=== PATIENT | male | born 1950 | race Caucasian/White ===

== ENCOUNTER 2018-11-11 10:01 | Emergency (ER) | payer BC, OTHER ==
--- NOTE | 2018-11-11 13:10 | EDPHY ---
H & P Stated Complaint: Double vision Time Seen by Provider: 11/11/18 12:53 HPI/ROS: CHIEF COMPLAINT: Double vision HISTORY OF PRESENT ILLNESS: Patient is a 68-year-old man the who comes to the emergency department this daughter complaining double vision over the last 2 weeks. It is particularly when he looks to the right. Today his daughter noticed that his right eye was off center and looking to the right. 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 He has not had any trauma. He has not had a fever. He does endorse a very mild headache behind his left eye. No sinus congestion. No weakness in his arms or legs. No trouble with his speech. No weakness in his face. Patient usually goes to the [place]. He states that he has not had to go to the hospital for 30 years. He has been told previously that he is diabetic but stop taking his oral medications. The he states that he is not heavy drinker. Severity: Moderate Modifying factors: None REVIEW OF SYSTEMS: Constitutional: denies: chills, fever, recent illness, recent injury EENTM: See HPI denies: blurred vision, nose congestion Respiratory: denies: cough, shortness of breath Cardiac: denies: chest pain, irregular heart rate, lightheadedness, palpitations Gastrointestinal/Abdominal: denies: abdominal pain, diarrhea, nausea, vomiting, blood streaked stools Genitourinary: denies: dysuria, frequency, hematuria, pain Musculoskeletal: denies: joint pain, muscle pain Skin: denies: lesions, rash, jaundice, bruising Neurological: denies: headache, numbness, paresthesia, tingling, dizziness, weakness Hematologic/Lymphatic: denies: blood clots, easy bleeding, easy bruising Immunologic/allergic: denies: HIV/AIDS, transplant 10 systems reviewed and negative except as noted EXAM: GENERAL: Well-appearing, well-nourished and in no acute distress. HEAD: Atraumatic, normocephalic. EYES: Right eye tends to drift temporally when looking straight ahead. Does not have double vision in each eye individually but only with both eyes together. Tends to close right eye when talking. Able to move in all directions but seems to deviate to far laterally. Pupils equal round and reactive to light, extraocular movements intact, sclera anicteric, conjunctiva are normal. No ptosis appreciated ENT: TMs normal, nares patent, oropharynx clear without exudates. Moist mucous membranes. Vision 20/25 in each eye and in both together NECK: Normal range of motion, supple without lymphadenopathy or JVD. LUNGS: Breath sounds clear to auscultation bilaterally and equal. No wheezes rales or rhonchi. HEART: Regular rate and rhythm without murmurs, rubs or gallops. ABDOMEN: Soft, nontender, normoactive bowel sounds. No guarding, no rebound. No masses appreciated. BACK: No CVA tenderness, no spinal tenderness, step-offs or deformities EXTREMITIES: Normal range of motion, no pitting or edema. No clubbing or cyanosis. NEUROLOGICAL: Cranial nerves II through XII grossly intact. Normal speech, normal gait. 5/5 strength, normal movement in all extremities, normal sensation , normal reflexes PSYCH: Normal mood, normal affect. SKIN: Warm, dry, normal turgor, no visible rashes or lesions. Source: Patient - Personal History Current Tetanus/Diphtheria Vaccine: Yes - Medical/Surgical History Hx Asthma: No Hx Chronic Respiratory Disease: Yes Hx Diabetes: Yes Hx Cardiac Disease: Yes Hx Renal Disease: No Hx Cirrhosis: No Hx Alcoholism: No Other PMH: Lombardo's Palsy. Pre-diabetic - Family History Significant Family History: No pertinent family hx - Social History Smoking Status: Heavy smoker Alcohol Use: None Constitutional: Initial Vital Signs Temperature (C) 36.9 C 11/11/18 10:16 Heart Rate 90 11/11/18 10:16 Respiratory Rate 16 11/11/18 10:16 Blood Pressure 175/101 H 11/11/18 10:16 O2 Sat (%) 90 L 11/11/18 10:16 O2 Delivery Mode Room Air Allergies/Adverse Reactions: No Known Allergies Allergy (Unverified 11/11/18 10:22) Home Medications: Medication Instructions Recorded NK [No Known Home Meds] 11/11/18 Medical Decision Making - Diagnostics Imaging Results: Imaging Impressions Head CT 11/11/18 13:07 Impression: No evidence for acute intracranial abnormality. Mild left chronic sinus related change. Results called and discussed with Dr. Porfirio Elizabeth on 11/11/2018, 14:49. Head CTA 11/11/18 13:07 Impression: 1. Mild atherosclerotic change in both carotid bulbs, without flow significant stenosis. No evidence for flow significant stenosis or dissection in either carotid artery or vertebral artery. 2. Multilevel degenerative disk and degenerative joint disease cervical spine. 3. Subdermal cyst seen in the posteroinferior neck in the midline. CT Angiogram of the Brain Clinical Indications: Double vision. 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 Technique: CT angiogram of the brain was performed with the uneventful intravenous administration of 85 mL Omnipaque-350 contrast. Multiplanar reconstructions including 3D reconstructions performed and evaluated on [employer] workstation in order to better evaluate the [place] vessels. Images were manipulated by the radiologist at the computer workstation. Dose reduction techniques were utilized. Findings: Major vessels of the [place] are adequately displayed, demonstrating no evidence of aneurysm, vascular malformation, flow-limiting stenosis, or occlusion. Bilateral cavernous internal carotid arteries and vertebrobasilar system demonstrates no evidence of flow-limiting stenosis, aneurysm, occlusion, or dissection. Superior sagittal sinus, transverse sinuses , and major veins demonstrate no evidence of intraluminal thrombi. Mild atherosclerotic calcifications are seen in the intracranial portions of both internal carotid arteries, with no flow significant stenosis. Impression: No flow significant stenosis is visualized. Mild atherosclerotic change is seen in the intracranial portions of both internal carotid arteries. No evidence for aneurysm or dural venous malformation. Results called and discussed with Porfirio Elizabeth M.D., at October 14, 2018 at 1445 hours. Measurement of carotid stenosis is based on the residual internal carotid diameter with [place] Symptomatic Carotid Endarterectomy Trial (NASCET) based stenosis levels. Neck CTA 11/11/18 13:07 Impression: 1. Mild atherosclerotic change in both carotid bulbs, without flow significant stenosis. No evidence for flow significant stenosis or dissection in either carotid artery or vertebral artery. 2. Multilevel degenerative disk and degenerative joint disease cervical spine. 3. Subdermal cyst seen in the posteroinferior neck in the midline. CT Angiogram of the Brain Clinical Indications: Double vision. 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 Technique: CT angiogram of the brain was performed with the uneventful intravenous administration of 85 mL Omnipaque-350 contrast. Multiplanar reconstructions including 3D reconstructions performed and evaluated on [employer] workstation in order to better evaluate the [place] vessels. Images were manipulated by the radiologist at the computer workstation. Dose reduction techniques were utilized. Findings: Major vessels of the [place] are adequately displayed, demonstrating no evidence of aneurysm, vascular malformation, flow-limiting stenosis, or occlusion. Bilateral cavernous internal carotid arteries and vertebrobasilar system demonstrates no evidence of flow-limiting stenosis, aneurysm, occlusion, or dissection. Superior sagittal sinus, transverse sinuses , and major veins demonstrate no evidence of intraluminal thrombi. Mild atherosclerotic calcifications are seen in the intracranial portions of both internal carotid arteries, with no flow significant stenosis. Impression: No flow significant stenosis is visualized. Mild atherosclerotic change is seen in the intracranial portions of both internal carotid arteries. No evidence for aneurysm or dural venous malformation. Results called and discussed with Porfirio Elizabeth M.D., at October 14, 2018 at 1445 hours. Measurement of carotid stenosis is based on the residual internal carotid diameter with [place] Symptomatic Carotid Endarterectomy Trial (NASCET) based stenosis levels. Brain MRI 11/11/18 15:44 Impression: 1. A few nonspecific hyperintense T2/FLAIR signal abnormalities in the white matter of bilateral cerebral hemispheres. Differential diagnosis includes minimal microvascular ischemic gliosis, migraine-related sequela, atypical demyelinating disease, or postinfectious/postinflammatory sequela. 2. No acute infarct, acute hemorrhage, hydrocephalus, or mass effect. 3. No pituitary macroadenoma. 4. Minimal left maxillary sinusitis. Findings and recommendations discussed with Emergency Department physician, Porfirio Elizabeth M.D., at 1651 hours, on November 11, 2018. Final report concurs with initial preliminary interpretation. Imaging: Discussed imaging studies w/ callisthenics instructor Radiologist ED Course/Re-evaluation: We discussed the patient's CT and lab results which are reassuring. He is right eye still tends to drift laterally. He is able to correct it if he concentrates. I observed him walking in the hallway without difficulty. I have paged Ophthalmology. 4:[address] Stanley Espinoza called back after multiple pages. He states that this is likely microvascular disease and requires outpatient follow-up. He can follow up with the patient tomorrow 3:30 p.m.. In the meantime I have ordered an MRI and TSH , the patient is now back from MRI. Differential Diagnosis: Partial list of the Differential diagnosis considered include but were not limited to; 3rd nerve palsy, CVA, hyperglycemia and although unlikely based on the history and physical exam, I also considered trauma, retinopathy, MS. - Data Points Laboratory Results: Laboratory Results 11/11/18 13:25 11/11/18 15:30 11/11/18 11/11/18 11/11/18 18:05 15:30 15:30 WBC RBC Hgb Hct MCV MCH MCHC RDW Plt Count MPV Neut % (Auto) Lymph % (Auto) [place] % (Auto) Eos % (Auto) Baso % (Auto) Nucleat RBC Rel Count Absolute Neuts (auto) Absolute Lymphs (auto) Absolute Monos (auto) Absolute Eos (auto) Absolute Basos (auto) Absolute Nucleated RBC Immature Gran % Immature Gran # Sodium 137 mEq/L mEq/L (135-145) Potassium 4.4 mEq/L mEq/L (3.5-5.2) Chloride 103 mEq/L mEq/L (97-110) Carbon Dioxide 28 mEq/l mEq/l (22-31) Anion Gap 6 mEq/L mEq/L (6-14) BUN 12 mg/dL mg/dL (7-23) Creatinine 0.8 mg/dL mg/dL (0.7-1.3) Estimated GFR > 60 Glucose 225 mg/dL H mg/dL (70-100) POC Glucose 157 mg/dL H mg/dL (70-100) Calcium 9.3 mg/dL mg/dL (8.5-10.4) TSH 1.110 uIU/mL uIU/mL (0.465-4.680) 11/11/18 11/11/18 13:25 13:25 WBC 7.31 10^3/uL 10^3/uL (3.80-9.50) RBC 5.84 10^6/uL 10^6/uL (4.40-6.38) Hgb 19.8 g/dL H g/dL (13.7-17.5) Hct 54.4 % H % (40.0-51.0) MCV 93.2 fL fL (81.5-99.8) MCH 33.9 pg pg (27.9-34.1) MCHC 36.4 g/dL g/dL (32.4-36.7) RDW 12.8 % % (11.5-15.2) Plt Count 183 10^3/uL 10^3/uL (150-400) MPV 9.0 fL fL (8.7-11.7) Neut % (Auto) 65.1 % % (39.3-74.2) Lymph % (Auto) 23.8 % % (15.0-45.0) Kendall % (Auto) 7.9 % % (4.5-13.0) Eos % (Auto) 2.2 % % (0.6-7.6) Baso % (Auto) 0.7 % % (0.3-1.7) Nucleat RBC Rel Count 0.0 % % (0.0-0.2) Absolute Neuts (auto) 4.76 10^3/uL 10^3/uL (1.70-6.50) Absolute Lymphs (auto) 1.74 10^3/uL 10^3/uL (1.00-3.00) Absolute Monos (auto) 0.58 10^3/uL 10^3/uL (0.30-0.80) Absolute Eos (auto) 0.16 10^3/uL 10^3/uL (0.03-0.40) Absolute Basos (auto) 0.05 10^3/uL 10^3/uL (0.02-0.10) Absolute Nucleated RBC 0.00 10^3/uL 10^3/uL (0-0.01) Immature Gran % 0.3 % % (0.0-1.1) Immature Gran # 0.02 10^3/uL 10^3/uL (0.00-0.10) Sodium 134 mEq/L L mEq/L (135-145) Potassium 4.4 mEq/L mEq/L (3.5-5.2) Chloride 105 mEq/L mEq/L (97-110) Carbon Dioxide 23 mEq/l mEq/l (22-31) Anion Gap 6 mEq/L mEq/L (6-14) BUN 12 mg/dL mg/dL (7-23) Creatinine 0.7 mg/dL mg/dL (0.7-1.3) Estimated GFR > 60 Glucose 245 mg/dL H mg/dL (70-100) POC Glucose Calcium 9.7 mg/dL mg/dL (8.5-10.4) TSH Medications Given: Discontinued Medications Insulin Human Regular (Humulin R) 5 unit IVP EDNOW ONE Stop: 11/11/18 14:01 Last Admin: 11/11/18 14:24 Dose: 5 units Insulin Human Regular (Humulin R) 5 unit IVP EDNOW ONE Stop: 11/11/18 16:33 Last Admin: 11/11/18 16:39 Dose: 5 units Point of Care Test Results: Chemistry 11/11/18 18:05 POC Glucose 157 mg/dL H mg/dL (70-100) Departure - Departure Disposition: Home, Routine, Self-Care Clinical Impression: Diplopia Condition: Fair Instructions: Diplopia (ED) Referrals: Ward Macedo MD [Medical Doctor] - As per Instructions NONE *PRIMARY CARE P,. [Primary Care Provider] - As per Instructions Stanley Espinoza MD [Medical Doctor] - 1 day without fail (3:30pm)
[2018-11-11 13:39] LABS: PLATELET COUNT 183 10^3/uL (150-400)
[2018-11-11] MEDS ORDERED: IOHEXOL 350mgI/ML (OMNIPAQUE) 150 ML BTL IV ONE (13:46)
[2018-11-11] MEDS ORDERED: INSULIN REGULAR HUMAN 100 UNIT/ML UNIT IVP ONE ×2 (14:00→16:32)
[2018-11-11 18:16] VITALS: BP 159/75
== END 2018-11-11 18:15 | disposition home or self-care (01) ==
DX: H53.2 Diplopia (principal)
CPT/HCPCS: 70450; 70496; 70498; 70551; 96374; 96376; 99285; J1815; Q9967

== ENCOUNTER 2019-02-09 12:31 | Emergency (ER) | payer OTHER ==
--- NOTE | 2019-02-09 13:09 | EDPHY ---
H & P Stated Complaint: 0 last night, r sided facial droop Time Seen by Provider: 02/09/19 12:47 HPI/ROS: CHIEF COMPLAINT: left facial droop HISTORY OF PRESENT ILLNESS: 68 year old male with history of TIA and previous Lombardo's palsy presents with left facial droop. 1st noticed moderate left facial droop yesterday evening at 1030pm. Involves eye and lips. Able to close eye, but it takes some concentration. Sx persisted today without change. Took 2 baby aspirin this morning. No recent head injury, VELA, eye irritation or vision change. No extremity weakness or numbness and no change in gait. REVIEW OF SYSTEMS: complete 10 point ROS reviewed and is negative except for the noted elements in the HPI - Personal History Current Tetanus Diphtheria and Acellular Pertussis (TDAP): No - Medical/Surgical History Hx Asthma: No Hx Chronic Respiratory Disease: Yes Hx Diabetes: Yes Hx Cardiac Disease: Yes Hx Renal Disease: No Hx Cirrhosis: No Hx Alcoholism: No Hx HIV/AIDS: No Hx Splenectomy or Spleen Trauma: No Other PMH: Lombardo's Palsy. Pre-diabetic. tia - Social History Smoking Status: Heavy smoker Alcohol Use: Sober Drug Use: None - Physical Exam Exam: General Appearance: Alert, pleasant Eyes: Pupils equal and round, no conjunctival pallor or injection ENT, Mouth: Mucous membranes moist Neck: Normal inspection Respiratory: Lungs are clear to auscultation Cardiovascular: Regular rate and rhythm Gastrointestinal: Abdomen is soft and nontender Neurological: A&O, left facial droop, forehead spared, motor 5/5 upper extremities, sensory grossly intact, normal gait Skin: Warm and dry Extremities: Normal inspection Psychiatric: Mood and affect normal Constitutional: Initial Vital Signs Temperature (C) 37 C 02/09/19 12:37 Heart Rate 90 02/09/19 12:37 Respiratory Rate 16 02/09/19 12:37 Blood Pressure 162/97 H 02/09/19 12:37 O2 Sat (%) 100 02/09/19 12:37 O2 Delivery Mode Room Air Allergies/Adverse Reactions: No Known Allergies Allergy (Verified 02/09/19 12:42) Home Medications: Medication Instructions Recorded NK [No Known Home Meds] 11/11/18 Medical Decision Making - Diagnostics EKG Interpretation: EKG interpreted by me reveals normal sinus rhythm, rate 94, Q-waves in leads 3 and AVF. Imaging Results: Head CT 02/09/19 12:46 Impression: No acute intracranial findings. Findings discussed with DORA DELA CRUZ 02/09/2019 at 13:04. Head CTA 02/09/19 12:46 Impression: 1. No acute vascular findings. If symptoms persist and clinical suspicion warrants, consider MRI. 2. Indeterminate bilateral parotid masses, which cannot be definitively characterized by CT. These could represent pleomorphic adenomas or less likely adenopathy or malignancy. 3. Tiny upper lobe pulmonary nodules. Follow-up unenhanced chest CT is recommended in one year to document stability. 4. Additional findings as above. Findings discussed with Dr. Dora Dela Cruz on 02/09/2019 at 1411. Stenoses are calculated using [place] Symptomatic Carotid Endarterectomy Trial (NASCET) criteria. Neck CTA 02/09/19 12:46 Impression: 1. No acute vascular findings. If symptoms persist and clinical suspicion warrants, consider MRI. 2. Indeterminate bilateral parotid masses, which cannot be definitively characterized by CT. These could represent pleomorphic adenomas or less likely adenopathy or malignancy. 3. Tiny upper lobe pulmonary nodules. Follow-up unenhanced chest CT is recommended in one year to document stability. 4. Additional findings as above. Findings discussed with Dr. Dora Dela Cruz on 02/09/2019 at 1411. Stenoses are calculated using [place] Symptomatic Carotid Endarterectomy Trial (NASCET) criteria. Imaging: Discussed imaging studies w/ tail puller Radiologist, I viewed and interpreted images myself ED Course/Re-evaluation: This patient presents with a left facial droop that spares the forehead. Concerning for central etiology of facial droop, such as CVA. Also in consideration is atypical Lombardo's Palsy. A stroke alert was called on patient arrival. Outside the window for IV tpa, not a TPA candidate. Noncontrast CT scan is unremarkable. Results discussed with the patient. Aspirin 162 mg orally given. The patient declines admission. He is a competent decision maker and clearly understands the risks and benefits of this decision. The patient was sent for CTA of the head and neck to r/o large vessel occlusion. CTA unremarkable, results discussed with the patient. He continues to decline admission. Understands risks of CVA. Dr. Ventura was consulted and will follow up with the patient in the office. I will have the patient take a full strength aspirin until he follows up with Neurology. Differential Diagnosis: Altered mental status including but not limited to Lombardo's Palsy, hypoglycemia, infectious process, electrolyte abnormality, head injury, CVA, and intoxicants. - Data Points Laboratory Results: Laboratory Results 02/09/19 12:55 02/09/19 12:55 Medications Given: Discontinued Medications Aspirin (Aspirin) 162 mg PO EDNOW ONE Stop: 02/09/19 13:32 Last Admin: 02/09/19 14:27 Dose: 162 mg Point of Care Test Results: Chemistry 02/09/19 02/09/19 12:57 12:57 POC Sodium 140 mEq/L mEq/L (135-145) POC Potassium 4.2 mEq/L mEq/L (3.3-5.0) POC Chloride 103 mEq/L mEq/L (97-110) POC Total CO2 27 mEq/L mEq/L (22-31) POC BUN 11 mg/dL mg/dL (7-23) POC Creatinine 0.7 mg/dL mg/dL (0.7-1.3) POC Glucose 265 mg/dL H mg/dL (70-100) POC Troponin I 0.01 ng/mL ng/mL (0.00-0.08) ISTAT H&H 02/09/19 12:57 POC Hgb 18.4 gm/dL H gm/dL (13.7-17.5) POC Hct 54 % H % (40-51) Departure - Departure Disposition: Home, Routine, Self-Care Clinical Impression: Acute ischemic stroke Condition: Good Instructions: Ischemic Stroke (DC) Additional Instructions: Take aspirin 325mg orally daily. Use lubricant eye drops to keep the left eye moist. Patch the eye at night. On your CT scan, there are 2 findings that need followup: 1. parotid nodules. Follow-up with ENT. 2. tiny lung nodules. You will need a repeat CT of the chest in 1 year. Please follow-up with your primary care physician regarding these findings. Referrals: Kin Ventura MD [Medical Doctor] - As per Instructions (Call to make an appointment.) Pipo Anderson MD [Medical Doctor] - As per Instructions (Call to make an appointment.)
[2019-02-09 13:12] LABS: PLATELET COUNT 177 10^3/uL (150-400)
[2019-02-09] MEDS ORDERED: IOPAMIDOL (ISOVUE 370) 100 ML BTL IV ONE (13:27)
[2019-02-09] MEDS ORDERED: ASPIRIN 81 MG CHEWABLE TAB PO ONE (13:31)
--- NOTE | 2019-02-09 15:24 | CPEKG ---
Test Reason : OPEN Blood Pressure : / mmHG Vent. Rate : 094 BPM Atrial Rate : 094 BPM P-R Int : 155 ms QRS Dur : 087 ms QT Int : 359 ms P-R-T Axes : 069 013 035 degrees QTc Int : 449 ms Sinus rhythm Probable left atrial enlargement Inferior infarct, old Confirmed by Dora Dela Cruz ([id number]) on 02/09/2019 3:23:59 PM Referred By: DORA DELA CRUZ Confirmed By:Dora Dela Cruz
[2019-02-09 15:33] VITALS: BP 144/100
== END 2019-02-09 15:33 | disposition home or self-care (01) ==
DX: I63.9 Cerebral infarction, unspecified (principal); G51.0 Bell's palsy; R91.8 Other nonspecific abnormal finding of lung field
CPT/HCPCS: 70450; 70496; 70498; 93005; 99285; Q9967; 82435-PO; 82565-PO; 82947-PO; 84132-PO; 84295-PO; 84484-ER; 84520-PO; 85014-ER

== ENCOUNTER 2019-02-21 18:44 | Emergency (ER) | payer OTHER ==
[2019-02-21] MEDS ORDERED: FLUORESCEIN SODIUM 1 MG STRIP OP ONE ×2 (20:01→20:03)
[2019-02-21] MEDS ORDERED: PROPARACAINE 0.5% 15 ML OPHT DROP ONE (20:01)
[2019-02-21] MEDS ORDERED: PROPARACAINE 0.5% 15 ML OPHT DROP EACHEYE ONE (20:03)
--- NOTE | 2019-02-21 20:24 | EDPHY ---
H & P Time Seen by Provider: 02/21/19 20:01 HPI/ROS: CHIEF COMPLAINT: Foreign body sensation in eye HISTORY OF PRESENT ILLNESS: The patient is a 68-year-old male who presents emergency department with a foreign body sensation in his left eye. Patient had a previous TIA and Lombardo's palsy when he presented on 02/09/2019 with left facial droop. He was diagnosed with acute ischemic stroke. He refused admission and was subsequently discharged home. He states since that time he has had issues with his left eye. He has not feel he can close his eye all the way. He has become bloodshot. He feels as though there is a foreign body sensation. It is improved after sleep. He has no visual change. No fevers or chills. No headache. REVIEW OF SYSTEMS: 10 systems were reveiwed and are negative with the exception of the elements mentioned in the history of present illness. Past Medical/Surgical History: Includes TIA, ischemic stroke, Lombardo's palsy, prediabetic Smoking Status: Heavy smoker Physical Exam: Vitals noted GENERAL: No acute distress, alert. Visual acuity: Noted. Eyelids: Normal inspection. Conjunctiva and sclera: Injected No foreign material. No subconjunctival hemorrhage. No exudate. Corneas: Normal inspection. . EOMs: Intact. Pupils: PERRL, normal accommodation. Anterior chambers: Normal inspection. No hyphema. No cells or flare. NECK: Normal, supple. RESPIRATORY: Clear to auscultation bilaterally, no rales, rhonchi or wheezing. CVS: Regular rate and rhythm, no rubs, murmurs, or gallops. ABDOMEN: Soft, nontender, nondistended, no organomegaly. BACK: Normal to inspection, no CVA tenderness. SKIN: Normal color, no rash, warm, dry. No pallor. EXTREMITIES: No pedal edema, no calf tenderness, no Homans sign or cords, no joint swelling. NEURO/PSYCH: Alert and oriented, normal mood and affect. Left facial droop. Constitutional: Initial Vital Signs Temperature (C) 36.8 C 02/21/19 18:51 Heart Rate 100 02/21/19 18:51 Respiratory Rate 16 02/21/19 18:51 Blood Pressure 137/89 H 02/21/19 18:51 O2 Sat (%) 94 02/21/19 18:51 O2 Delivery Mode Room Air Allergies/Adverse Reactions: No Known Allergies Allergy (Verified 02/21/19 18:51) Home Medications: Medication Instructions Recorded NK [No Known Home Meds] 11/11/18 Medical Decision Making ED Course/Re-evaluation: In the emergency department discussed possible etiologies with the patient. I answered all his questions. Patient will be given an antibiotic drop in the emergency department. He will use every 2 hr while awake. He was given follow- up with Ophthalmology. He will see their office in the next 1-2 days. He is given warnings prior to leaving. He will return with worsening symptoms. Differential Diagnosis: My differential includes but is not limited to conjunctivitis, allergic reaction , dry eye, iritis I feel the patient likely has an injected dye due to the fact that he cannot close his eyelid. He was instructed on eyelid closure at night. He will follow up with the shaft repairer. He was given drops in the emergency department. He will use moisture drops from the pharmacy. - Data Points Medications Given: Discontinued Medications Fluorescein Sodium (Bioglo) 1 mg OP EDNOW ONE Stop: 02/21/19 20:04 Last Admin: 02/21/19 20:09 Dose: Not Given Proparacaine HCl (Alcaine 0.5%) 1 drops EACHEYE ONCE ONE Stop: 02/21/19 20:04 Last Admin: 02/21/19 20:09 Dose: Not Given Departure - Departure Disposition: Home, Routine, Self-Care Clinical Impression: Conjunctivitis Qualifiers: Conjunctivitis type: acute Acute conjunctivitis type: unspecified Laterality: left Qualified Code(s): H10.32 - Unspecified acute conjunctivitis, left eye Condition: Fair Instructions: Conjunctivitis (ED) Additional Instructions: You need to keep her eye closed at night. Tape her eye shut while you sleep. Use moist her drops from the pharmacy. These drop should include only normal saline. The pharmacist or staff can help you with this. Use antibiotic drops given to the emergency department. Place 2 drops in her left eye every 2 hr while awake Referrals: Alfonso Castillo MD [Medical Doctor] - 2-3 days, call for appt.
[2019-02-21] MEDS ORDERED: CIPROFLOXACIN 0.3% DROPS PREPACK OPHT.BTL TAKEHOME ONE (20:34)
[2019-02-21 20:44] VITALS: BP 113/74
== END 2019-02-21 20:44 | disposition home or self-care (01) ==
DX: H10.32 Unspecified acute conjunctivitis, left eye (principal); G51.0 Bell's palsy; F17.200 Nicotine dependence, unspecified, uncomplicated; Z86.73 Personal history of transient ischemic attack (TIA), and cerebral infarction without residual deficits